=== PATIENT | female | born 1950 | race Caucasian/White ===

== ENCOUNTER 2021-02-03 09:04 | Day surgery (SDC) | payer MEDICARE, MEDICAID ==
[2021-01-30 16:13] LABS: BASOPHILS # (AUTO) 0.1 X10'3 (0-0.2); BASOPHILS % (AUTO) 0.7 % (0-1); EOSINOPHILS # (AUTO) 0.1 X10'3 (0-0.9); EOSINOPHILS % (AUTO) 1.6 % (0-6); LYMPHOCYTES # (AUTO) 3.2 X10'3 (1.1-4.8); MEAN CORPUSCULAR HGB CONC 33.3 g/dL (33.0-36.5); MEAN CORPUSCULAR VOLUME 93.1 FL (78-98); MEAN PLATELET VOLUME 8.6 FL (7.4-10.4); MONOCYTES # (AUTO) 0.7 X10'3 (0-0.9); MONOCYTES % (AUTO) 9.4 % (2-12); NEUTROPHILS # (AUTO) 3.8 X10'3 (1.8-7.7); NEUTROPHILS % (AUTO) 48.3 % (42-75); PRE OP HEMATOCRIT 43.8 % (35.0-45.0); PRE OP HEMOGLOBIN 14.6 g/dL (12.0-16.0); PRE OP PLATELET COUNT 283 X10'3 (140-440); RED BLOOD COUNT 4.71 X10'6 (4.20-5.60); RED CELL DISTRIBUTION WIDTH 13.6 % (11.5-14.5)
[2021-01-30 16:26] LABS: PRE OP PROTIME 9.9 SECONDS (9.0-12.0)
[2021-01-30 16:30] LABS: ALBUMIN/GLOBULIN RATIO 1.1 (1.1-1.5); ALKALINE PHOSPHATASE 151 IU/L (46-116); BLOOD UREA NITROGEN 14 MG/DL (7-18); BUN/CREATININE RATIO 15.6 (6.6-38.0); CALCIUM 9.4 MG/DL (8.5-10.1); CHLORIDE 101 MMOL/L (99-107); PRE OP ALT 20 U/L (30-65); PRE OP ANION GAP 9 (8-16); PRE OP AST 19 U/L (10-37); PRE OP BILIRUB, TOTAL 0.5 MG/DL (0.0-1.0); PRE OP GLUCOSE 99 MG/DL (70-104); PRE OP SODIUM 138 MMOL/L (135-145); TOTAL CARBON DIOXIDE 28.1 MMOL/L (24-32); TOTAL PROTEIN 7.8 G/DL (6.4-8.2); eGFR 62 ML/MIN
[2021-02-03] VITALS (17 sets, daily range): BP systolic 102–144; BP diastolic 51–78
[~2021-02-03] VITALS: Ht 170.2 cm; Wt 99.0 kg
[~2021-02-03 09:04] MED LIST: ASPI81TA52 PO; cefazolin/dext.iso 2gm/50ml IV ONE; famotidine 20mg tablet PO ONE; ringers solution, lacted 1,000 ML IV SCH; tranexamic acid inj. 1,000 MG in 0.7% saline 100 ML PMX IV ONE; vancomycin 1,500 MG in NS 300ml IV soln IV ONE
[2021-02-03] MEDS ORDERED: ROPIVACAINE IU ONE (10:16)
[2021-02-03] MEDS ORDERED: NORMAL SALINE IU ONE (10:16)
[2021-02-03] MEDS ORDERED: CLONIDINE IU ONE (10:16)
[2021-02-03] MEDS ORDERED: vancomycin 1,000mg inj ONE ×2 (10:21→10:39)
[2021-02-03] MEDS ORDERED: ketorolac trometh. 30mg/ml inj. ONE (10:21)
[2021-02-03] MEDS ORDERED: tetracaine 1% (10mg/ml) pres. free inj. ONE (10:55)
[2021-02-03] MEDS ORDERED: MIDAZolam 1 MG/ML 5ML VIAL ONE (10:58)
[2021-02-03] MEDS ORDERED: fentaNYL/PF 50MCG/1 ML 2ML syringe ONE ×3 (10:58→11:59)
[2021-02-03] MEDS ORDERED: acetaminophen 1000 MG/100ml vial IV ONE (11:02)
[2021-02-03] MEDS ORDERED: ROPIVAcaine 0.5% (5mg/ml) 30ml vial ONE (11:30)
[2021-02-03] MEDS ORDERED: diphenhydrAMINE 50 mg/ml inj ONE (11:33)
[2021-02-03] MEDS ORDERED: propofol inj 20 ML IV ONE ×2 (11:33→13:25)
[2021-02-03] MEDS ORDERED: LIDOcaine 1%/PF 5ML 10 MG/ML VIAL ONE (11:33)
[2021-02-03] MEDS ORDERED: ringers solution, lacted 1,000 ML IV SCH (13:05)
[2021-02-03] MEDS ORDERED: morphine 4 MG/ML inj SYRINge IV PRN (13:05)
[2021-02-03] MEDS ORDERED: morphine 2 MG/ML inj. syringe IV PRN (13:05)
[2021-02-03] MEDS ORDERED: proCHLORperazine 10 MG/2 ml inj IV PRN (13:05)
[2021-02-03] MEDS ORDERED: ondansetron/PF 4mg/2ml inj IV PRN ×2 (13:05→13:45)
[2021-02-03] MEDS ORDERED: meperidine/PF 25mg/ml syringe IV PRN ×3 (13:05)
--- NOTE | 2021-02-03 13:38 | NUR ---
Received from OR via , accompanied by Anesthesiologist DR SUAREZ and report given by Anesthesiolgist. AWAKENS TO VOICE. VITALS STABLE. DRESSING DI. SHIRAZ PAIN. SENSATION AT MID CHEST. EDWARDS WITH CLEAT URINE.
[2021-02-03] MEDS ORDERED: magnesium hydroxide 30ml (MOM) UD suspension PO PRN (13:45)
[2021-02-03] MEDS ORDERED: potassium Cl 20mEq in NS 1,000 ML IV SCH (13:45)
[2021-02-03] MEDS ORDERED: bisacodyl 10mg suppository rectal RC PRN (13:45)
[2021-02-03] MEDS ORDERED: diphenhydrAMINE 25mg capsule PO PRN ×2 (13:45)
[2021-02-03] MEDS ORDERED: HYDROcodone/acetaminophen 10/325mg tab PO PRN (13:45)
[2021-02-03] MEDS ORDERED: acetaminophen 325mg tablet PO PRN (13:45)
--- NOTE | 2021-02-03 14:38 | NUR ---
Report called to receiving nurse. Transferred via BED Belongings . Special Issues communicated to receiving nurse.AWAKE AND ORIENTED. VITALS STABLE. DRESSING DI. SHIRAZ PAIN. TO SURGICAL RM 356A AT THIS TIME.
[2021-02-03] MEDS: ceFAZolin/D5W- 1GM premix 50 ML IV SCH (16:14)
[2021-02-03] MEDS: HYDROmorphone 1 mg/ml syringe IV PRN ×2 (17:53→22:06)
--- NOTE | 2021-02-03 18:34 | NUR ---
Patient in room [facility]. I have received report from SOHAN Barba and had the opportunity to ask questions and assume patient care.
[2021-02-03] MEDS: HYDROcodone/acetaminophen 10/325mg tab PO PRN (19:06)
[2021-02-03] MEDS ORDERED: vancomycin/NS 1 GM ADD-VANTAGE 250 ML IV SCH (20:00)
[2021-02-03] MEDS ORDERED: sennosides 8.6mg tablet PO SCH (21:00)
[2021-02-03] MEDS ORDERED: ketorolac trometh. 30mg/ml inj. IV PRN (22:45)
[2021-02-04] VITALS: BP 109/58
[2021-02-04] MEDS: ceFAZolin/D5W- 1GM premix 50 ML IV SCH (00:15)
[2021-02-04] MEDS: HYDROcodone/acetaminophen 10/325mg tab PO PRN ×2 (02:08→12:09)
[2021-02-04 04:00] VITALS: BP 107/52
[2021-02-04] MEDS: HYDROmorphone 1 mg/ml syringe IV PRN ×2 (04:06→08:39)
--- NOTE | 2021-02-04 06:15 | NUR ---
Problems reprioritized. Patient report given, questions answered & plan of care reviewed with SOHAN Barba.
[2021-02-04 06:25] LABS: BASOPHILS % (AUTO) 0.5 % (0-1); EOSINOPHILS # (AUTO) 0.2 X10'3 (0-0.9); EOSINOPHILS % (AUTO) 2.3 % (0-6); HEMOGLOBIN 10.8 g/dl (12.0-16.0); LYMPHOCYTES # (AUTO) 1.8 X10'3 (1.1-4.8); LYMPHOCYTES % (AUTO) 27.2 % (21-51); MEAN CORPUSCULAR HEMOGLOBIN 31.5 PG (27.0-31.0); MEAN CORPUSCULAR HGB CONC 33.9 g/dL (33.0-36.5); MEAN CORPUSCULAR VOLUME 92.9 FL (78-98); MEAN PLATELET VOLUME 8.5 FL (7.4-10.4); MONOCYTES # (AUTO) 0.6 X10'3 (0-0.9); PLATELET COUNT 193 X10'3 (140-440); RED BLOOD COUNT 3.44 X10'6 (4.20-5.60); RED CELL DISTRIBUTION WIDTH 13.5 % (11.5-14.5); WHITE BLOOD COUNT 6.5 X10'3 (4.5-11.0)
--- NOTE | 2021-02-04 06:37 | NUR ---
Patient in room [facility]. I have received report from Rose PARRY and had the opportunity to ask questions and assume patient care.
[2021-02-04 06:44] LABS: ALANINE AMINOTRANSFERASE 20 U/L (12-78); ALBUMIN 2.6 G/DL (3.4-5.0); ALBUMIN/GLOBULIN RATIO 0.9 (1.1-1.5); ALKALINE PHOSPHATASE 107 IU/L (46-116); ANION GAP 7 (8-16); ASPARTATE AMINO TRANSFERASE 16 U/L (10-37); BILIRUBIN,TOTAL 0.8 MG/DL (0.1-1.0); BLOOD UREA NITROGEN 10 MG/DL (7-18); CALCIUM 7.9 MG/DL (8.5-10.1); CHLORIDE 107 MMOL/L (99-107); CREATININE 0.91 MG/DL (0.40-0.90); GLUCOSE 111 MG/DL (70-104); POTASSIUM 4.4 MMOL/L (3.5-5.1); SODIUM 139 MMOL/L (135-145); TOTAL CARBON DIOXIDE 24.6 MMOL/L (24-32); TOTAL PROTEIN 5.4 G/DL (6.4-8.2); eGFR 61 ML/MIN
[2021-02-04 08:18] VITALS: BP 109/59
[2021-02-04] MEDS ORDERED: aspirin 325mg tablet PO SCH (08:30)
--- NOTE | 2021-02-04 11:11 | NUR ---
Front wheel walker delivered at bedside. PT Elise was notified
[2021-02-04] MEDS ORDERED: ASPI-1 PO (11:28)
[2021-02-04] MEDS ORDERED: HYDR-3972 PO (11:28)
[2021-02-04] MEDS ORDERED: SENN-173 PO (11:28)
--- NOTE | 2021-02-04 12:35 | NUR ---
Discharged patient home, patient verbalized understanding of all instructions given to her. Peripheral IV catheter, removed, tip intact. cafe or restaurant manager Jeaneth was notified prior to discharge that this patient needs home health PT as per PT's recommendation. New prescriptions were e-sent to her pharmacy. Patient left with all her belongings with her including the front wheel walker that was delivered to her at bedside. Left knee wound dressing was changed prior to discharge, stapled are intact. Bloody drainage was noted in small amount from her lower part of her surgical incision, gauze and abd pad were applied then wrapped with ambrosio bandage. Patient was medicated with [place] prior to discharge, patient's friend picked her up upon discharge.
== END 2021-02-04 12:35 | disposition home or self-care (01) ==
LOC: PAS 09:04 → SUR 3N 13:49 → PAS 02-04 12:35
PROVIDERS: ATTEND Orthopaedic Surgery
DX: M17.12 Unilateral primary osteoarthritis, left knee (principal); G89.18 Other acute postprocedural pain; F41.9 Anxiety disorder, unspecified; E66.9 Obesity, unspecified; Z68.34 Body mass index [BMI] 34.0-34.9, adult; Z79.01 Long term (current) use of anticoagulants; Z79.899 Other long term (current) drug therapy; Z98.890 Other specified postprocedural states; Z20.822 Contact with and (suspected) exposure to COVID-19; Z87.891 Personal history of nicotine dependence
CPT/HCPCS: 27447; 36415; 64447; 76942; 80053; 82948; 83036; 85025; 85610; 85730; 86885; 86900; 86901; 86920; 87081; 93005; 97110; 97161; 97530; A6223; C1713; C1758; C1776; J0131; J0690; J0735; J1170; J1200; J1885; J2250; J2704; J2795; J3010; J3370; J3480; J3490; J7030; J7040; J7120; Q0163; U0003; U0005; Z7506; Z7508; Z7512; A6253; A6449; A6455; A7000; G0378